=== PATIENT | female | born 2000 ===

== ENCOUNTER 2021-08-18 06:05 | Inpatient (IN) ==
[2021-08-18] MEDS ORDERED: CARBOPROST TROMETHAMINE 250 MCG/ML AMP IM PRN (06:15)
[2021-08-18] MEDS ORDERED: OXYTOCIN/LR 20 UNIT/1,000 ML BAG IV ONE ×2 (06:15→23:46)
[2021-08-18] MEDS ORDERED: ONDANSETRON 4 MG/2 ML VIAL IV PRN (06:15)
[2021-08-18] MEDS ORDERED: MEPERIDINE 50 MG/1 ML VIAL IV PRN (06:15)
[2021-08-18] MEDS ORDERED: miSOPROStoL 200 MCG TABLET RECTAL PRN (06:15)
[2021-08-18] MEDS ORDERED: METHYLERGONOVINE 0.2 MG/1 ML AMP IM PRN (06:15)
[2021-08-18] MEDS ORDERED: TRANEXAMIC ACID 1,000 MG in SODIUM CHLORIDE 0.9% 100 ML IV PRN (06:15)
[2021-08-18 06:43] LABS: Basophils % 0.3 % (0.0-0.8); Eosinophils # 0.2 10*3/uL (0.0-0.87); Eosinophils % 1.3 % (0.00-10.9); Hematocrit 37.3 VOL% (35.7-47.0); Hemoglobin 12.4 GM/DL (12.0-16.0); Immature Granulocytes % 0.8 %; Lymphocytes # 2.4 10*3/uL (1.4-4.0); Lymphocytes % 18.1 % (21.3-54.2); Mean Corpuscular HGB Conc 33.2 GM/DL (32-36); Mean Corpuscular Volume 87.1 FL (87-102); Mean Platelet Volume 10.5 FL (9.6-12.0); Monocytes % 7.8 % (1.7-12.7); Neutrophils % 71.7 % (38.7-73.9); Platelet Count 229 T/CUMM (130-400); Red Blood Count 4.28 MC/CUMM (3.8-5.5); Red Cell Distribution Width 14.1 % (9.3-17.3); White Blood Count 13.3 T/CUMM (4-12)
[2021-08-18] MEDS: LACTATED RINGERS 1,000 ML IV SCH ×3 (06:46→23:14)
[2021-08-18] MEDS: OXYTOCIN/LR 20 UNIT/1,000 ML BAG IV SCH (07:17)
[2021-08-18] MEDS: BUTORPHANOL 2 MG/ML VIAL IV PRN (15:46)
[2021-08-18] MEDS ORDERED: miSOPROStoL 200 MCG TABLET ONE (23:46)
[2021-08-18] MEDS ORDERED: METHYLERGONOVINE 0.2 MG/1 ML AMP ONE (23:46)
[2021-08-18] MEDS ORDERED: TRANEXAMIC ACID 1,000 MG/10 ML VIAL ONE (23:46)
[2021-08-18] MEDS ORDERED: SODIUM CHLORIDE 0.9% 0 ML IV ONE (23:46)
[2021-08-18] MEDS ORDERED: CARBOPROST TROMETHAMINE 250 MCG/ML AMP IM ONE (23:47)
[2021-08-19] MEDS: BUTORPHANOL 2 MG/ML VIAL IV PRN (01:32)
[2021-08-19] MEDS ORDERED: LANOLIN 50% CREAM 0.3 OZ TUBE TOP PRN (03:07)
[2021-08-19] MEDS ORDERED: DIPH/TET/ACEL PERT BOOSTER VACCINE 0.5 ML VIAL IM ONE (03:07)
[2021-08-19] MEDS ORDERED: ACETAMINOPHEN 325 MG TABLET PO PRN (03:07)
[2021-08-19] MEDS ORDERED: OXYTOCIN/LR 20 UNIT/1,000 ML BAG IV ONE (03:07)
[2021-08-19] MEDS ORDERED: oxyCODONE/ACETAMINOPHEN 5-325 MG TABLET PO PRN ×2 (03:07)
[2021-08-19] MEDS ORDERED: HYDROCORTISONE 2.5% RECTAL CREAM 30 GM TUBE TOP PRN (03:07)
[2021-08-19] MEDS ORDERED: BISACODYL 10 MG SUPP RECTAL PRN (03:07)
[2021-08-19] MEDS ORDERED: MEASLES/MUMPS/RUBELLA VACCINE 0.5 ML VIAL SUBCUT ONE (03:07)
[2021-08-19] MEDS ORDERED: WITCH HAZEL PADS 100/JAR TOP PRN (03:07)
[2021-08-19] MEDS ORDERED: ONDANSETRON 4 MG/2 ML VIAL IV PRN (03:07)
[2021-08-19] MEDS ORDERED: BENZOCAINE 20%/MENTHOL 0.5% SPRAY 56 GM CAN TOP PRN (03:07)
[2021-08-19] MEDS: OXYTOCIN/LR 20 UNIT/1,000 ML BAG IV SCH (03:07)
[2021-08-19] MEDS ORDERED: RHO(D) IMMUNE GLOBULIN 300 MCG SYRINGE IM ONE (03:07)
[2021-08-19 03:10] LABS: Cord Arterial Blood HCO3 15.4 MMOL/L
[2021-08-19 03:13] LABS: Cord Venous Blood PCO2 42.4 MMHG; Cord Venous Blood PO2 30.6
[2021-08-19] MEDS: CLINDAMYCIN INJ 600 MG/50 ML PREMIX IV SCH ×3 (04:31→14:47)
[2021-08-19 04:38] LABS: Basophils % 0.1 % (0.0-0.8); Hematocrit 33.4 VOL% (35.7-47.0); Hemoglobin 11.5 GM/DL (12.0-16.0); Immature Granulocytes % 1.1 %; Immature Granulocytes Absolute 0.25 #; Lymphocytes # 0.8 10*3/uL (1.4-4.0); Lymphocytes % 3.4 % (21.3-54.2); Mean Corpuscular HGB Conc 34.4 GM/DL (32-36); Mean Corpuscular Volume 85.2 FL (87-102); Mean Platelet Volume 10.3 FL (9.6-12.0); Monocytes # 1.5 10*3/uL (0.11-0.8); Monocytes % 6.7 % (1.7-12.7); Neutrophils % 88.7 % (38.7-73.9); Platelet Count 217 T/CUMM (130-400); Red Blood Count 3.92 MC/CUMM (3.8-5.5); Red Cell Distribution Width 13.9 % (9.3-17.3); White Blood Count 22.9 T/CUMM (4-12)
[2021-08-19 05:00] LABS: Band Neutrophils 1 % (0-10); Lymphocytes 2 % (20-55); Platelet Estimate Adequate; Total Cells Counted 100
[2021-08-19] MEDS: MULTIVITAMIN (PRENATAL) TABLET PO SCH (09:32)
[2021-08-19] MEDS: DOCUSATE SODIUM 100 MG CAPSULE PO SCH ×2 (09:32→22:24)
[2021-08-19] MEDS: IBUPROFEN 800 MG TABLET PO PRN (12:47)
[2021-08-19 20:42] LABS: Basophils % 0.2 % (0.0-0.8); Eosinophils # 0.1 10*3/uL (0.0-0.87); Eosinophils % 0.7 % (0.00-10.9); Hematocrit 28.1 VOL% (35.7-47.0); Hemoglobin 9.3 GM/DL (12.0-16.0); Immature Granulocytes % 0.7 %; Immature Granulocytes Absolute 0.12 #; Lymphocytes # 2.6 10*3/uL (1.4-4.0); Lymphocytes % 15.6 % (21.3-54.2); Mean Corpuscular HGB Conc 33.1 GM/DL (32-36); Mean Corpuscular Volume 88.9 FL (87-102); Mean Platelet Volume 10.4 FL (9.6-12.0); Monocytes # 1.4 10*3/uL (0.11-0.8); Monocytes % 8.2 % (1.7-12.7); Neutrophils % 74.6 % (38.7-73.9); Platelet Count 187 T/CUMM (130-400); Red Blood Count 3.16 MC/CUMM (3.8-5.5); Red Cell Distribution Width 14.1 % (9.3-17.3); White Blood Count 16.5 T/CUMM (4-12)
[2021-08-19] MEDS: CLINDAMYCIN 150 MG CAPSULE PO SCH (23:27)
[2021-08-20] MEDS: IBUPROFEN 800 MG TABLET PO PRN ×2 (02:47→13:00)
[2021-08-20] MEDS: CLINDAMYCIN 150 MG CAPSULE PO SCH ×3 (06:04→22:36)
[2021-08-20] MEDS: MULTIVITAMIN (PRENATAL) TABLET PO SCH (08:40)
[2021-08-20] MEDS: DOCUSATE SODIUM 100 MG CAPSULE PO SCH ×2 (08:40→22:36)
[2021-08-21] MEDS: CLINDAMYCIN 150 MG CAPSULE PO SCH (07:02)
[2021-08-21 07:39] VITALS: BP 137/79
[2021-08-21] MEDS: DOCUSATE SODIUM 100 MG CAPSULE PO SCH (08:51)
[2021-08-21] MEDS: MULTIVITAMIN (PRENATAL) TABLET PO SCH (08:51)
== END 2021-08-21 11:50 | disposition home or self-care (01) | DRG 560 ==
LOC: N.LDOUT 06:05 → N.LD 06:08 → N.OB 08-19 05:55
PROVIDERS: ADMIT Obstetrics & Gynecology; ATTEND Obstetrics & Gynecology